=== PATIENT | male | born 1965 | race Caucasian/White ===

== ENCOUNTER 2021-03-22 09:15 | Emergency (ER) | payer OTHER, SELFPAY ==
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
[2021-03-22 10:02] VITALS: BP 137/76; PULSE 68; TEMP 36.6; O2SAT 100; BMI 25.0
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
--- NOTE | 2021-03-22 12:36 | PC.NURSE ---
PT EVALUATED BY DR FOSTER. PLAN IS FOR DC HOME. PT AWAKE, ALERT AND ORIENTED X 3. SKIN WARM AND DRY. RESP UNLABORED. DENIES N/V. NO ACUTE DISTRESS NOTED. AIRWAY PATENT. SPEAKING IN FULL CLEAR SENTENCES. NEUROS INTACT.
== END 2021-03-22 12:40 | disposition home or self-care (01) ==
PROVIDERS: Emergency Provider Emergency Medicine Emergency Medical Services; PCP Internal Medicine
DX: S22.31XA Fracture of one rib, right side, initial encounter for closed fracture (principal); S40.012A Contusion of left shoulder, initial encounter; W18.39XA Other fall on same level, initial encounter; Y93.89 Activity, other specified; Y92.9 Unspecified place or not applicable; Y99.9 Unspecified external cause status
CPT/HCPCS: 73030; 99283